=== PATIENT | female | born 2000 | race Caucasian/White ===

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

== ENCOUNTER 2022-08-08 16:48 | Emergency (ER) | payer OTHER ==
[~2022-08-08] VITALS: Ht 147.3 cm; Wt 47.7 kg
[2022-08-08 16:54] VITALS: TEMP 98.1
[2022-08-08] MEDS ORDERED: ZOFRAN ODT4 MG PO (17:32)
[2022-08-08 18:04] VITALS: BP 133/84; PULSE 82
[2022-08-09] MEDS ORDERED: ZOFRAN ODT4 MG PO (19:29)
== END 2022-08-08 18:04 | disposition home or self-care (01) ==
LOC: COL.ER 16:48
DX: S06.0XAA Concussion with loss of consciousness status unknown, initial encounter (principal); Z28.310 Unvaccinated for COVID-19; W17.89XA Other fall from one level to another, initial encounter
CPT/HCPCS: J1885